=== PATIENT | female | born 1975 | race Caucasian/White ===

== ENCOUNTER 2021-02-02 11:49 | Inpatient (IN) ==
--- OUTSIDE RECORDS SUMMARY | 2021-02-02 11:52 | External Medical Summary | Continuity of Care Document ---
:1975 Author Name Tana Caicedo Address Unavailable Unavailable , Care Team Providers Name Role Phone Moi Magallanes [email or web address] [place] PILGRAM, A Unavailable Unavailable Unavailable Unavailable Unavailable Problems Encounter for routine gynecological examination (V72.31) (Z0 1.419) Female infertility (628.9) (N97.9) Depression (311) (F32.9) Endometriosis (617.9) (N80.9) Anxiety (300.00) (F41.9) Allergies and Adverse Reactions Amoxicillin CAPS (Allergy) Penicillins (Allergy) Medications buPROPion HCl ER (SR) 150 MG Oral Tablet Extended Release 12 Hour Refills: 0 Multi Vitamin/Minerals TABS Refills: 0 Nitin-Citrate CAPS Refills: 0 Procedures History of Laparoscopy (Diagnostic) Stat us: Completed History of Knee Arthroscopy (Therapeutic) Status: Completed History of Dilation And Curettage Status : Completed History of Oral Surgery Tooth Extraction Status: Completed Immunizations Immunizations not documented Family History Brother Family history of Hypertension (V17.49) Status: Active Grandmother Family history of Breast Cancer (V16.3) Status: Active Mother Family history of Hypertension (V17.49) Status: Active Family history of Cervical Cancer Status: Active Family history of Parkinson Disease Status: Active Sister Family history of Endometriosis Status: Active Social History - Smoking Status Smokes tobacco daily Plan of Treatment Planned Observations Planned Goals not documented Results No Known Results Results not documented Encounters Appointment; Marty Magallanes M.D. 22-Jun-2013 15:15 Encounter Diagnosis: Problem not documented
--- OUTSIDE RECORDS SUMMARY | 2021-02-02 11:52 | External Medical Summary | Continuity of Care Document ---
:1975 Author Name Tana Caicedo Address Unavailable Unavailable , Care Team Providers Name Role Phone Moi Magallanes M.D.@[email or web address] [place] PILGRAM, A Unavailable Unavailable Unavailable Unavailable Unavailable Problems Anxiety (300.00) (F41.9) Endometriosis (617.9) (N80.9) Depression (311) (F32.9) Female infertility (628.9) (N97.9) Encounter for routine gynecological examination (V72.31) (Z0 1.419) Allergies and Adverse Reactions Amoxicillin CAPS (Allergy) [...]
[2021-02-02] MEDS ORDERED: SODIUM CHLORIDE 0.9% 1000ML 1,000 ML IV ONE (12:23)
[2021-02-02] MEDS ORDERED: KETOROLAC TROMETHAMINE 15 MG/ML VIAL IV ONE (12:23)
[2021-02-02] MEDS ORDERED: dexAMETHasone**PF** 10 MG/ML VIAL IV ONE (12:40)
--- NOTE | 2021-02-02 12:43 | Emergency Department Note ---
Impression & Plan Pneumonia due to COVID-19 virus, Weakness, Hypoxia ED Provider Note Provider: Jasvir Blanchard MD DATE OF SERVICE: 02/02/2021 CHIEF COMPLAINT: Short of breath, weakness, Covid HISTORY OF PRESENT ILLNESS: Patient is a 45-year-old female denies significant past medical history presenting here approximately 10 days into course of illness and symptoms with coronavirus. Patient states she tested +8 days ago at urgent care and [facility]. Lives at home with her who is also ill. States she is been more short of breath and significantly weak and fatigued. States she had nausea and diarrhea in particular pain in the bilateral hips. Denies any syncope or falls. Reports fevers at times. Denies trauma or rash. States she gets very short of breath and weak if she tries to move around at home. Not been eating or drinking very much. Denies a history of asthma but states she is a former smoker. Denies recent travel. REVIEW OF SYSTEMS: A total of 10 review of systems was obtained and negative except as stated above in the HPI. PAST MEDICAL HISTORY: As noted above MEDICATIONS: Denies home medications SOCIAL HISTORY: Former smoker, lives at home with PHYSICAL EXAM: GENERAL: alert and oriented laying on the stretcher appears somewhat fatigued Head: normocephalic and atraumatic EYES: No injection, discharge or icterus. NECK: Trachea midline. LUNGS: Airway patent. No retractions. Breath sounds clear but mildly tachypneic HEART: Regular tachycardic rate and rhythm. No chest wall tenderness ABDOMEN: Soft and non-tender, without guarding or rebound. SKIN: Acyanotic, warm, dry, without rashes EXTREMITIES: Without swelling or deformity lower extremities with some mild bilateral hip tenderness on exam. NEUROLOGICAL: No focal deficits. No aphasia. No facial droop or slurred speech. EK bpm sinus tachycardia the PVC or PAC. No acute ST segment elevation or depression. QTC 474. CONTINUOUS CARDIAC MONITORING: was ordered and showed a heart rate of 90s-120s bpm in normal sinus rhythm and sinus tachycardia Patient's laboratory studies and imaging reviewed. Differential includes Infection, dehydration, metabolic abnormality, hypo/hyperglycemia, electrolyte disturbance, anemia, hypoxia, cardiac sources, intracerebral event, toxicologic, neurologic, as well as other pathologies. IMPRESSION/MEDICAL DECISION MAKING: Patient presents approximately 10 days into Covid hypoxic here initially on room air and tachycardic and tachypneic. Some GI symptoms and reports some concerning findings for dehydration. Reports bilateral hip pain but states her fevers have been improving some Tylenol home; believe this is likely myalgias related to her viral syndrome and illness. Last Tylenol she believes around 8 AM this morning. Given some fluid hydration here. Dose of dexamethasone ordered given her hypoxia. Chest x-ray and basic labs ordered as well as EKG. EKG without ischemic changes. D-dimer sent. Covid testing sent to confirm coronavirus infection. Patient somewhat improving on supplemental oxygen here nasal cannula. No si gnificant leukocytosis on laboratory studies. No anemia. No significant renal dysfunction or signs of electrolyte abnormality beyond some mild hypokalemia. Troponin is undetectable with this in the EKG I doubt acute cardiac injury or myocarditis. No transaminitis noted or signs of pancreatitis based on labs. No significant recent antibiotics and I doubt this represents an infectious C. difficile colitis. Likely nausea and vomiting and diarrheal symptoms secondary to the Covid. Negative . D-dimer is elevated 700 and as such a CT of the chest with complete exclude PE. Chest x-ray per my review and radiology interpretation with diffuse interstitial laboratory changes in the setting of the coronavirus diagnosis consistent with a viral pneumonitis/pneumonia. Patient again now requiring some degree of oxygen is significantly weak and fatigued. Given this discussed with her and she was in agreement the plan for further care and observation here in the hospital. The hospitalist team was alerted. CT of the chest per radiology with viral inflammatory changes but no evidence of PE. Small effusions noted. DIAGNOSIS: COVID-19 pneumonia, weakness, hypoxia DISPOSITION: Hospitalist will evaluate Patient was agreeable with this plan. Past Med/Surg History Social History Smoking Status: Former smoker Preferred Language: Upper Sorbian Feels Safe at Home: Yes Allergies Allergies Allergy/AdvReac Type Severity Reaction Status Date / Time PCN AMOXICILLIN Allergy Unknown Uncoded 01/25/05 12:35 Home Meds Home Medications Medication Instructions Recorded Confirmed Multivit/Min/Iron/Fol Ac/Pren 1 tab PO DAILY #0 09/04/07 ( Vitamin) Vitamin B Cmplx/Vitc/Folic Ac 1 cap PO BID #0 09/04/07 (Nephrocaps) Results & Data (ED) Vital Signs Vital Signs - 24 hr 02/02/21 11:54 02/02/21 12:19 02/02/21 12:36 Temperature 36.3 C L Temperature Source Temporal Artery Scan Pulse Rate 124 H 88 80 Pulse Rate [Left] Pulse Rate from SpO2 Sensor 102 H Respiratory Rate 26 H 30 H 20 Respiratory Effort / Characteristics Short of Breath Short of Breath SOB on Exertion Blood Pressure 131/70 133/88 Blood Pressure [Right Arm] Blood Pressure Mean 90 103 Blood Pressure Mean [Right Arm] Blood Pressure Position [Right Arm] Pulse Oximetry 88 L 95 95 Oxygen Delivery Method Room Air Nasal Cannula Oxygen Flow Rate 2 Sepsis Recent Fever Within 48 Hours Yes Sepsis New/Unexplained Change in Mental Status No Sepsis Action Taken by Nursing Physician Notified 02/02/21 12:40 02/02/21 12:50 02/02/21 13:00 Temperature Temperature Source Pulse Rate 82 85 56 L Pulse Rate [Left] Pulse Rate from SpO2 Sensor 101 H 106 H 99 H Respiratory Rate 32 H 35 H 27 H Respiratory Effort / Characteristics Blood Pressure Blood Pressure [Right Arm] Blood Pressure Mean Blood Pressure Mean [Right Arm] Blood Pressure Position [Right Arm] Pulse Oximetry 95 95 95 Oxygen Delivery Method Oxygen Flow Rate Sepsis Recent Fever Within 48 Hours Sepsis New/Unexplained Change in Mental Status Sepsis Action Taken by Nursing 02/02/21 13:03 02/02/21 13:10 Temperature Temperature Source Pulse Rate Pulse Rate [Left] 71 Pulse Rate from SpO2 Sensor 96 H Respiratory Rate 30 H 30 H Respiratory Effort / Characteristics Short of Breath SOB on Exertion Blood Pressure Blood Pressure [Right Arm] 133/88 Blood Pressure Mean Blood Pressure Mean [Right Arm] 103 Blood Pressure Position [Right Arm] Lying Pulse Oximetry 95 96 Oxygen Delivery Method Nasal Cannula Oxygen Flow Rate 2 Sepsis Recent Fever Within 48 Hours Sepsis New/Unexplained Change in Mental Status Sepsis Action Taken by Nursing Laboratory Data Result diagrams: 02/02/21 12:40 02/02/21 12:40 Lab Results 02/02/21 02/02/21 02/02/21 Range/Units 12:40 12:40 12:40 WBC 6.55 (4.8-10.8) K/uL RBC 4.53 (4.2-5.4) M/uL Hgb 13.3 (12.0-16.0) g/dL Hct 39.1 (37-47) % MCV 86.3 (80-100) fL MCH 29.4 (25-34) pg MCHC 34.0 (32-36) g/dL RDW Std Deviation 41.8 (36.4-46.3) fL RDW Coeff of Becka 12.9 (11.5-14.5) % Plt Count 323 (130-400) K/uL MPV 9.7 (7.4-10.4) fL Immature Gran % (Auto) 0.3 % Neut % (Auto) 81.8 % Lymph % (Auto) 10.8 % [place] % (Auto) 6.7 % Eos % (Auto) 0.2 % Baso % (Auto) 0.2 % Neut # (Auto) 5.36 (1.4-6.5) K/uL Lymph # (Auto) 0.71 L (1.2-3.4) K/uL [place] # (Auto) 0.44 (0.11-0.59) K/uL Eos # (Auto) 0.01 (0-0.5) K/uL Baso # (Auto) 0.01 (0-0.2) K/uL Immature Gran # (Auto) 0.02 (0.00-0.02) K/uL PT 11.2 (9.0-12.0) Seconds INR 1.1 (0.9-1.1) APTT 26.7 (21.0-31.0) Seconds PTT Ratio 1.0 D-Dimer 700 H* (0-500) ug/L FEU Sodium 140 (136-145) mmol/L Potassium 3.4 L (3.5-5.1) mmol/L Chloride 107 (98-107) mmol/L Carbon Dioxide 27 (21-32) mmol/L Anion Gap 6.0 (3-11) BUN 17 (7-18) mg/dl Creatinine 0.68 (0.6-1.2) mg/dl Est Cr Clr Drug Dosing 105.8 ml/min Est GFR ( Amer) 122.4 Est GFR (Non-Af Amer) 105.6 BUN/Creatinine Ratio 24.3 H (10-20) Glucose 97 (70-99) mg/dl Calcium 8.5 (8.5-10.1) mg/dl Magnesium 2.4 (1.8-2.4) mg/dl Total Bilirubin 0.4 (0.2-1) mg/dl AST 32 (15-37) U/L ALT 34 (12-78) U/L Alkaline Phosphatase 50 (45-117) U/L Troponin I < 0.015 (0-0.045) ng/ml Total Protein 8.1 (6.4-8.2) gm/dl Albumin 2.9 L (3.4-5.0) gm/dl Globulin 5.2 H (2.5-4.0) gm/dl Albumin/Globulin Ratio 0.6 L (0.9-2) Lipase 283 (73-393) U/L HCG, Qual (Negative) COVID-19 Eval Order SARS-CoV-2 (PCR) (Negative) Influenza Type A (PCR) (Neg) Influenza Type B (PCR) (Neg) RSV (RT-PCR) (Neg) 02/02/21 02/02/21 02/02/21 Range/Units 12:40 12:55 12:55 WBC (4.8-10.8) K/uL RBC (4.2-5.4) M/uL Hgb (12.0-16.0) g/dL Hct (37-47) % MCV (80-100) fL MCH (25-34) pg MCHC (32-36) g/dL RDW Std Deviation (36.4-46.3) fL RDW Coeff of Becka (11.5-14.5) % Plt Count (130-400) K/uL MPV (7.4-10.4) fL Immature Gran % (Auto) % Neut % (Auto) % Lymph % (Auto) % [place] % (Auto) % Eos % (Auto) % Baso % (Auto) % Neut # (Auto) (1.4-6.5) K/uL Lymph # (Auto) (1.2-3.4) K/uL [place] # (Auto) (0.11-0.59) K/uL Eos # (Auto) (0-0.5) K/uL Baso # (Auto) (0-0.2) K/uL Immature Gran # (Auto) (0.00-0.02) K/uL PT (9.0-12.0) Seconds INR (0.9-1.1) APTT (21.0-31.0) Seconds PTT Ratio D-Dimer (0-500) ug/L FEU Sodium (136-145) mmol/L Potassium (3.5-5.1) mmol/L Chloride (98-107) mmol/L Carbon Dioxide (21-32) mmol/L Anion Gap (3-11) BUN (7-18) mg/dl Creatinine (0.6-1.2) mg/dl Est Cr Clr Drug Dosing ml/min Est GFR ( Amer) Est GFR (Non-Af Amer) BUN/Creatinine Ratio (10-20) Glucose (70-99) mg/dl Calcium (8.5-10.1) mg/dl Magnesium (1.8-2.4) mg/dl Total Bilirubin (0.2-1) mg/dl AST (15-37) U/L ALT (12-78) U/L Alkaline Phosphatase (45-117) U/L Troponin I (0-0.045) ng/ml Total Protein (6.4-8.2) gm/dl Albumin (3.4-5.0) gm/dl Globulin (2.5-4.0) gm/dl Albumin/Globulin Ratio (0.9-2) Lipase (73-393) U/L HCG, Qual Negative (Negative) COVID-19 Eval Order CovFluRsv at [facility] SARS-CoV-2 (PCR) POSITIVE A* (Negative) Influenza Type A (PCR) Negative (Neg) Influenza Type B (PCR) Negative (Neg) RSV (RT-PCR) Negative (Neg) Administered Medications Discontinued Medications Dexamethasone Sodium Phosphate (DexamethasonePf 10 Mg/Ml Vial) 6 mg IV NOW ONE Stop: 02/02/21 12:41 Last Admin: 02/02/21 12:52 Dose: 6 mg Documented by: [id number] Sodium Chloride (Nss 1000ml) 1,000 mls @ 999 mls/hr IV .Q1H1M ONE Stop: 02/02/21 13:23 Last Infusion: 02/02/21 13:59 Dose: 0 mls/hr Documented by: [id number] Admin: 02/02/21 12:52 Dose: 999 mls/hr Documented by: [id number] Ioversol (Optiray 320 125ml) 120 ml IV ONCE ONE Stop: 02/02/21 13:52 Last Admin: 02/02/21 13:51 Dose: 120 ml Documented by: [id number] Ketorolac Tromethamine (Ketorolac Tromethamine 15 Mg/Ml Vial) 10 mg IV NOW ONE Stop: 02/02/21 12:24 Last Admin: 02/02/21 12:52 Dose: 10 mg Documented by: [id number] Imaging Data Radiologist's Impression: Chest X-Ray 02/02/21 12:22 XR chest 1V portable CLINICAL HISTORY: Dyspnea, COVID COMPARISON STUDY: No previous studies for comparison. FINDINGS: The heart is normal in size. There are multifocal airspace opacities consistent with a multifocal pneumonia.[There are no large pleural effusions. There is no pneumothorax. IMPRESSION: Multifocal pulmonary airspace opacities consistent with a multifocal pneumonia ACT 112: Negative or not required by law. Electronically signed by: Reginald Hernández M.D. 02/02/2021 1:47 PM Chest CTA 02/02/21 13:35 CT ANGIOGRAM OF THE CHEST CLINICAL HISTORY: Dyspnea. Covid pneumonia. COMPARISON STUDY: Chest x-ray dated 02/02/2021 TECHNIQUE: Following the IV administration of 120 cc of Optiray 320, CT angiogram of the chest was performed from the upper abdomen to the thoracic inlet utilizing the pulmonary embolus protocol. Images are reviewed in the axial, sagittal, and coronal planes. 3-D MIPS images are created and assessed. IV contrast was administered without complication. A dose lowering technique wa s utilized adhering to the principles of ALARA. CT DOSE: 853.97 mGy.cm FINDINGS: Thyroid: Imaged portions of the thyroid gland are normal in size and attenuation. Thoracic aorta: The thoracic aorta is normal in caliber and demonstrates 4- vessel very arch anatomy. No dissection is seen. Pulmonary vasculature: The pulmonary trunk is normal in caliber. There are no filling defects identified in main, lobar, or segmental pulmonary branches to suggest pulmonary embolus. Heart: The heart is normal in size and without pericardial effusion. Lungs and pleural spaces: Evaluation of the lung parenchyma is degraded by bib on artifact. Multifocal airspace consolidation is seen throughout both lungs with a lower lobe and subpleural predominance. There are small pleural effusions. The trachea and central airways are clear. Mediastinum: Mildly enlarged mediastinal lymph nodes measure up to 10 mm in short axis. Aline: Mildly enlarged hilar nodes measure up to 13 mm in short axis. Axillae: There is no axillary lymphadenopathy. Upper abdomen: There is a calcified gallstone. Partially visualized upper abdominal viscera is otherwise grossly unremarkable. Skeletal structures: No lytic or blastic bony lesions are seen. IMPRESSION: 1. There is no evidence of pulmonary embolus in the main, lobar, or segmental pulmonary arteries. 2. Multifocal airspace consolidation is consistent with the reported history of a viral pneumonia. Radiographic follow-up to resolution is recommended. 3. Small pleural effusions. 4. Mildly enlarged mediastinal and hilar nodes are likely reactive. 5. Cholelithiasis. ACT 112: Negative or not required by law. Electronically signed by: Boris Han M.D. 02/02/2021 2:18 PM Discharge Plan Visit Data Chief Complaint: Shortness of Breath/Dyspnea Stated Complaint: SOB, CHEST PAIN, COVID + ON 01-26-21 ED Provider: Jasvir Blanchard Discharge Problem: Pneumonia due to COVID-19 virus, Weakness, Hypoxia Forms Stand Alone Forms: My [facility] [place] [employer] Prescriptions Prescriptions: No Action Multivit/Min/Iron/Fol Ac/Pren ( Vitamin) tablet 1 tab PO DAILY Qty: 0 RF: 0 Vitamin B Cmplx/Vitc/Folic Ac (Nephrocaps) 1 CAP capsule 1 cap PO BID Qty: 0 RF: 0
[2021-02-02 13:09] LABS: Basophils # (auto) 0.01 K/uL (0-0.2); Basophils % (auto) 0.2 %; Eosinophils # (auto) 0.01 K/uL (0-0.5); Eosinophils % (auto) 0.2 %; Hematocrit (blood only) 39.1 % (37-47); Hemoglobin 13.3 g/dL (12.0-16.0); Immature Granulocytes # (auto) 0.02 K/uL (0.00-0.02); Immature Granulocytes % (auto) 0.3 %; Lymphocytes # (auto) 0.71 K/uL (1.2-3.4); Lymphocytes % (auto) 10.8 %; Mean Corpuscular Hemoglobin 29.4 pg (25-34); Mean Corpuscular Volume 86.3 fL (80-100); Mean Platelet Volume 9.7 fL (7.4-10.4); Monocytes # (auto) 0.44 K/uL (0.11-0.59); Monocytes % (auto) 6.7 %; Neutrophils # (auto) 5.36 K/uL (1.4-6.5); Neutrophils % (auto) 81.8 %; Platelet Count 323 K/uL (130-400); RDW Coefficient of Variation 12.9 % (11.5-14.5); RDW Standard Deviation 41.8 fL (36.4-46.3); Red Blood Count 4.53 M/uL (4.2-5.4); White Blood Count 6.55 K/uL (4.8-10.8)
[2021-02-02 13:21] LABS: INR 1.1 (0.9-1.1); Partial Thromboplastin Time 26.7 Seconds (21.0-31.0); Prothrombin Time 11.2 Seconds (9.0-12.0)
[2021-02-02 13:24] LABS: D Dimer 700 ug/L FEU (0-500)
[2021-02-02 13:27] LABS: Alanine Aminotransferase 34 U/L (12-78); Albumin Level 2.9 gm/dl (3.4-5.0); Aspartate Aminotransferase 32 U/L (15-37); BUN Creatinine Ratio 24.3 (10-20); Blood Urea Nitrogen 17 mg/dl (7-18); Calcium 8.5 mg/dl (8.5-10.1); Carbon Dioxide 27 mmol/L (21-32); Chloride 107 mmol/L (98-107); Creatinine Clr Calc Pharmacy 105.8 ml/min; Est GFR (African American) 122.4; Est GFR (Non-African American) 105.6; Glucose 97 mg/dl (70-99); Lipase 283 U/L (73-393); Magnesium 2.4 mg/dl (1.8-2.4); Potassium 3.4 mmol/L (3.5-5.1); Sodium 140 mmol/L (136-145)
[2021-02-02 13:28] LABS: Pregnancy Test, Serum Negative (Negative)
[2021-02-02 13:32] LABS: Albumin Globulin Ratio 0.6 (0.9-2); Alkaline Phosphatase 50 U/L (45-117); Bilirubin,Total 0.4 mg/dl (0.2-1); Globulin 5.2 gm/dl (2.5-4.0); Total Protein 8.1 gm/dl (6.4-8.2); Troponin I < 0.015 ng/ml (0-0.045)
--- NOTE | 2021-02-02 13:48 | XRay Report ---
XR chest 1V portable CLINICAL HISTORY: Dyspnea, COVID COMPARISON STUDY: No previous studies for comparison. FINDINGS: The heart is normal in size. There are multifocal airspace opacities consistent with a mult ifocal pneumonia.[There are no large pleural effusions. There is no pneumothorax. IMPRESSION: Multifocal pulmonary airspace opacities consistent with a multifocal pneumonia ACT 112: Negative or not required by law. Electronically signed by: Reginald Hernández M.D. 02/02/2021 1:47 PM
[2021-02-02 13:51] LABS: Influenza A virus by PCR Negative (Neg); Influenza B virus by PCR Negative (Neg); RSV by PCR Negative (Neg)
[2021-02-02] MEDS ORDERED: OPTIRAY 320 125ml IV ONE (13:51)
[2021-02-02 13:57] LABS: SARS CoV2 RNA(COVID-19) InHosp POSITIVE (Negative)
--- NOTE | 2021-02-02 14:19 | CT Scan Report ---
CT ANGIOGRAM OF THE CHEST CLINICAL HISTORY: Dyspnea. Covid pneumonia. COMPARISON STUDY: Chest x-ray dated 02/02/2021 TECHNIQUE: Following the IV administration of 120 cc of Optiray 320, CT angiogram of the chest was pe rformed from the upper abdomen to the thoracic inlet utilizing the pulmonary embolus protocol. Images are reviewed in the axial, sagittal, and coronal planes. 3-D MIPS images are created and assessed. I V contrast was administered without complication. A dose lowering technique was utilized adhering to the principles of ALARA. CT DOSE: 853.97 mGy.cm FINDINGS: Thyroid: Imaged portions of the thyroid gland are normal in size and attenuation. Thoracic aorta: The thoracic aorta is normal in caliber and demonstrates 4-vessel very arch anatomy. No dissection is seen. Pulmonary vasculature: The pulmonary trunk is normal in caliber. There are no filling defects identif ied in main, lobar, or segmental pulmonary branches to suggest pulmonary embolus. Heart: The heart is normal in size and without pericardial effusion. Lungs and pleural spaces: Evaluation of the lung parenchyma is degraded by motion artifact. Multifoca l airspace consolidation is seen throughout both lungs with a lower lobe and subpleural predominance. There are small pleural effusions. The trachea and central airways are clear. Mediastinum: Mildly enlarged mediastinal lymph nodes measure up to 10 mm in short axis. Aline: Mildly enlarged hilar nodes measure up to 13 mm in short axis. Axillae: There is no axillary lymphadenopathy. Upper abdomen: There is a calcified gallstone. Partially visualized upper abdominal viscera is otherw ise grossly unremarkable. Skeletal structures: No lytic or blastic bony lesions are seen. IMPRESSION: 1. There is no evidence of pulmonary embolus in the main, lobar, or segmental pulmonary arteries. 2. Multifocal airspace consolidation is consistent with the reported history of a viral pneumonia. Ra diographic follow-up to resolution is recommended. 3. Small pleural effusions. 4. Mildly enlarged mediastinal and hilar nodes are likely reactive. 5. Cholelithiasis. ACT 112: Negative or not required by law. Electronically signed by: Boris Han M.D. 02/02/2021 2:18 PM
[2021-02-02] MEDS ORDERED: ACETAMINOPHEN 500 MG TAB PO STA (14:22)
--- NOTE | 2021-02-02 14:44 | Electrocardiogram Report ---
Test Reason : Blood Pressure : / mmHG Vent. Rate : 101 BPM Atrial Rate : 101 BPM P-R Int : 130 ms QRS Dur : 088 ms QT Int : 366 ms P-R-T Axes : 036 002 011 degrees QTc Int : 474 ms Sinus tachycardia Minimal voltage criteria for LVH, may be normal variant Borderline ECG No previous ECGs available Confirmed by Pastor Juarez ([id number]) on 02/02/2021 2:44:32 PM Referred By: REFERRED SELF Confirmed By:Pastor Juarez
[2021-02-02 15:13] LABS: C Reactive Protein 10.6 mg/dl (0-0.29); Ferritin 225.4 ng/ml (8-388)
--- NOTE | 2021-02-02 16:02 | History & Physical Report ---
Date of Service February 02, 2021 Assessment & Plan (1) Pneumonia due to COVID-19 virus: (2) Acute respiratory failure with hypoxia: -Admit to telemetry -Patient presenting from home with reports of worsening shortness of breath, tested positive for COVID-19 on 01/22 -In the ED, saturating 88% on room air, currently requiring 2 L via nasal cannula to maintain saturations -CTA chest negative for pulmonary embolism however shows multifocal consolidation -IV remdesivir and dexamethasone -Given duration of illness, no indication for convalescent plasma -Negative procalcitonin, hold antibiotics for now (3) DVT prophylaxis: -SQ Lovenox Admission and Anticipated Discharge Date Admission Date: February 02, 2021 History of Present Illness Chief Complaint: Shortness of breath, + COVID-19 on 01/22 Primary Care Provider: Doc Taylor MD 45-year-old female with H depression and other problems listed below who presents to the ED for evaluation of ongoing shortness of breath and positive COVID-19 test on 01/22. Patient reports she has been sick for the past 10 days. Reports symptoms have been progressively getting worse. She reports shortness of breath with minimal exertion and conversation. She has had a nonproductive cough. Has been having ongoing low-grade fevers. Reports a very poor appetite. Reports sense of taste and smell remains intact however food does not taste normal. Denies abdominal pain, nausea, vomiting, diarrhea. No chest pain or palpitations. Denies lightheadedness and dizziness. No urinary symptoms. In the ED, patient was found to be hypoxic on room air at 88%. Currently requiring 2 L of oxygen via NC to maintain saturation. CTA chest is negative for pulmonary embolism however shows multifocal airspace consolidation. Patient was given Tylenol, IV dexamethasone, IV ketorolac, IVF. Allergies Allergy/AdvReac Type Severity Reaction Status Date / Time amoxicillin Allergy Unconscious Unverified 02/02/21 14:35 Penicillins Allergy Unknown Unverified 02/02/21 14:35 Home Medications Medication Instructions Recorded Confirmed Type bupropion HCl 450 mg PO DAILY 02/02/21 02/02/21 History Past Med/Surg History Medical History (Updated 02/02/21 @ 16:07 by SHIMON Monzon) Depression Surgical History (Updated 02/02/21 @ 16:04 by SHIMON Monzon) No history of previous surgery Family History Mother Cervical cancer Social History (Updated 02/02/21 @ 16:05 by SHIMON Monzon) Smoking Status: Former smoker Hx Alcohol Use: Yes Alcohol Intake Frequency: 2-4 x/Month Preferred Language: Grenadian Feels Safe at Home: Yes Review of Systems Review of Systems: ROS per HPI, all other systems reviewed and negative Physical Exam Constitutional: WD/WN, vitals as above + ill appearing; no acute distress Eyes: PERRL, conjunctivae normal, anicteric sclerae ENMT: external ear and nose normal, oropharynx normal Respiratory: normal respiratory effort; no respiratory distress Auscultation: + diminished lung sounds Shortness of breath with minimal exertion Cardiovascular: Rate/Rhythm: regular rate and regular rhythm Vessels: normal peripheral pulses Extremities: no edema Gastrointestinal (Abdomen): normal bowel sounds, soft, nontender, no hepatosplenomegaly Musculoskeletal: no cyanosis or clubbing, extremities motor strength 5/5 Skin: no rashes, warm and dry Neurologic: PERRL, EOMI, accommodation nl, no face palsy, no dysarthria Psychiatric: A+Ox3, euthymic affect Results & Data Results & Data ([facility]) Vital Signs (Past 12 Hours) Vital Signs Temp Pulse Pulse Resp BP BP Pulse Ox 02/02/21 14:31 75 21 94 02/02/21 14:30 62 23 114/78 94 02/02/21 14:27 37.2 C 62 30 H 122/90 95 02/02/21 14:20 77 25 H 94 02/02/21 14:11 62 23 94 02/02/21 14:10 64 30 H 122/90 94 02/02/21 14:04 93 02/02/21 13:40 81 32 H 94 02/02/21 13:30 69 28 H 119/81 95 02/02/21 13:20 68 29 H 96 02/02/21 13:17 73 20 130/82 95 02/02/21 13:10 30 H 96 02/02/21 13:03 71 30 H 133/88 95 02/02/21 13:00 56 L 27 H 95 02/02/21 12:50 85 35 H 95 02/02/21 12:40 82 32 H 95 02/02/21 12:36 80 20 95 02/02/21 12:19 88 30 H 133/88 95 02/02/21 11:54 36.3 C L 124 H 26 H 131/70 88 L Laboratory Results Short CBC 02/02/21 Range/Units 12:40 WBC 6.55 (4.8-10.8) K/uL Hgb 13.3 (12.0-16.0) g/dL Hct 39.1 (37-47) % Plt Count 323 (130-400) K/uL BMP 02/02/21 12:40 Sodium 140 Potassium 3.4 L Chloride 107 Carbon Dioxide 27 BUN 17 Creatinine 0.68 Glucose 97 Calcium 8.5 Cardiac Enzymes 02/02/21 Range/Units 12:40 Troponin I < 0.015 (0-0.045) ng/ml Liver Function 02/02/21 Range/Units 12:40 Total Bilirubin 0.4 (0.2-1) mg/dl AST 32 (15-37) U/L ALT 34 (12-78) U/L Alkaline Phosphatase 50 (45-117) U/L Albumin 2.9 L (3.4-5.0) gm/dl Diagnostic Findings Chest X-Ray 02/02/21 12:22 XR chest 1V portable CLINICAL HISTORY: Dyspnea, COVID COMPARISON STUDY: No previous studies for comparison. FINDINGS: The heart is normal in size. There are multifocal airspace opacities consistent with a multifocal pneumonia.[There are no large pleural effusions. There is no pneumothorax. IMPRESSION: Multifocal pulmonary airspace opacities consistent with a multifocal pneumonia ACT 112: Negative or not required by law. Electronically signed by: Reginald Hernández M.D. 02/02/2021 1:47 PM Chest CTA 02/02/21 13:35 CT ANGIOGRAM OF THE CHEST CLINICAL HISTORY: Dyspnea. Covid pneumonia. COMPARISON STUDY: Chest x-ray dated 02/02/2021 TECHNIQUE: Following the IV administration of 120 cc of Optiray 320, CT angiogram of the chest was performed from the upper abdomen to the thoracic inlet utilizing the pulmonary embolus protocol. Images are reviewed in the axial, sagittal, and coronal planes. 3-D MIPS images are created and assessed. IV contrast was administered without complication. A dose lowering technique was utilized adhering to the principles of ALARA. CT DOSE: 853.97 mGy.cm FINDINGS: Thyroid: Imaged portions of the thyroid gland are normal in size and attenuation. Thoracic aorta: The thoracic aorta is normal in caliber and demonstrates 4- vessel very arch anatomy. No dissection is seen. Pulmonary vasculature: The pulmonary trunk is normal in caliber. There are no filling defects identified in main, lobar, or segmental pulmonary branches to suggest pulmonary embolus. Heart: The heart is normal in size and without pericardial effusion. Lungs and pleural spaces: Evaluation of the lung parenchyma is degraded by motion artifact. Multifocal airspace consolidation is seen throughout both lungs with a lower lobe and subpleural predominance. There are small pleural effusions. The trachea and central airways are clear. Mediastinum: Mildly enlarged mediastinal lymph nodes measure up to 10 mm in short axis. Aline: Mildly enlarged hilar nodes measure up to 13 mm in short axis. Axillae: There is no axillary lymphadenopathy. Upper abdomen: There is a calcified gallstone. Partially visualized upper abdominal viscera is otherwise grossly unremarkable. Skeletal structures: No lytic or blastic bony lesions are seen. IMPRESSION: 1. There is no evidence of pulmonary embolus in the main, lobar, or segmental pulmonary arteries. 2. Multifocal airspace consolidation is consistent with the reported history of a viral pneumonia. Radiographic follow-up to resolution is recommended. 3. Small pleural effusions. 4. Mildly enlarged mediastinal and hilar nodes are likely reactive. 5. Cholelithiasis. ACT 112: Negative or not required by law. Electronically signed by: Boris Han M.D. 02/02/2021 2:18 PM Code Status & VTE Plan VTE Prophylaxis Plan VTE Prophylaxis will be ordered: Yes Supervising Physician Co-Signing Physician Notes Attending addendum: The patient was seen and examined telemetry/Covid unit She has been complaining of cough with no shortness of breath for the last 10 days following diagnosis of COVID-19 Cough and shortness of breath has been worse for the last 3 days with fever and sweating She was noted to be desaturating at home CT of the chest in the ER showed multiple pneumonia suggestive of COVID-19 infection On examination Moderate shortness of breath at rest Hemodynamically stable Chest-decreased breath sounds both sides with minimal crackles ,no wheezing Heart-S1-S2, regular Abdomen-benign Extremities-no edema Admission labs imaging studies reviewed And increased CRP, D-dimer positive CT of the chest for COVID-19 We will continue remdesivir and Dexamethasone Agree with assessment and plan as outlined above by Elidia Salguero
[2021-02-02] MEDS ORDERED: ACETAMINOPHEN 325 MG TAB PO PRN (16:55)
[2021-02-02] MEDS ORDERED: POTASSIUM CHLORIDE CRTAB 20 MEQ TABCR PO ONE (17:30)
[2021-02-02] MEDS ORDERED: REMDESIVIR 200 MG in SODIUM CHLORIDE 0.9% 210 ML IV ONE (18:00)
[2021-02-02] MEDS: SODIUM CHLORIDE 0.9% 10ML FLUSH IV SCH (20:52)
[2021-02-02] MEDS: ENOXAPARIN INJ 40 MG/0.4 ML SYR SQ SCH (20:52)
[2021-02-03 06:14] LABS: Hematocrit (blood only) 37.5 % (37-47); Hemoglobin 12.5 g/dL (12.0-16.0); Mean Corpuscular Hemoglobin 29.1 pg (25-34); Mean Corpuscular Hgb Conc 33.3 g/dL (32-36); Mean Corpuscular Volume 87.4 fL (80-100); Mean Platelet Volume 9.3 fL (7.4-10.4); Platelet Count 317 K/uL (130-400); RDW Coefficient of Variation 12.8 % (11.5-14.5); RDW Standard Deviation 41.3 fL (36.4-46.3); Red Blood Count 4.29 M/uL (4.2-5.4); White Blood Count 4.36 K/uL (4.8-10.8)
[2021-02-03 07:05] LABS: BUN Creatinine Ratio 29.7 (10-20); Calcium 8.5 mg/dl (8.5-10.1); Creatinine Clr Calc Pharmacy 127.6 ml/min; Est GFR (African American) 129.8; Potassium 4.1 mmol/L (3.5-5.1)
[2021-02-03] MEDS: buPROPion XL 150 MG TABCR PO SCH (09:05)
[2021-02-03] MEDS: dexAMETHasone 6 MG in SYRINGE 0 ML IV SCH (09:05)
[2021-02-03] MEDS ORDERED: FUROSEMIDE 40 MG in SYRINGE 0 ML IV ONE (12:30)
[2021-02-03] MEDS: guaiFENesin/DEXTROM SYRUP 200MG/20MG 10ML UDC PO PRN ×2 (14:21→22:45)
--- NOTE | 2021-02-03 16:15 | Hospitalist Progress Note ---
Date of Service February 03, 2021 Assessment & Plan (1) Pneumonia due to COVID-19 virus: (2) Acute respiratory failure with hypoxia: -Admit to telemetry -Patient presenting from home with reports of worsening shortness of breath, tested positive for COVID-19 on 01/22 -In the ED, saturating 88% on room air, currently requiring 2 L via nasal cannula to maintain saturations -CTA chest negative for pulmonary embolism however shows multifocal consolidation -IV remdesivir and dexamethasone -Given duration of illness, no indication for convalescent plasma -Negative procalcitonin, hold antibiotics for now -She has been tolerating prone position as long as she can -Clinically not any better and if the symptoms deteriorate will need to involve pulmonary -We will start [id number] cough medicine and give a small dose of Lasix IV to improve saturation -She is agreeable to have pulmonary evaluation if the condition deteriorates (3) DVT prophylaxis: -SQ Lovenox Admission and Anticipated Discharge Date Admission Date: February 02, 2021 Subjective 02/03/2021 The patient was seen and examined in telemetry/Covid unit She was noted to require up to 5 L of oxygen to maintain saturation She complains of cough but no increasing shortness of breath Denies any fever and/or chills Review of Systems Review of Systems: All systems reviewed and are unremarkable except as noted below Respiratory: + cough, + chest congestion and + dyspnea Physical Exam Physical Exam: Lying in bed with minimal shortness of breath at rest Constitutional: well developed, well nourished and average body habitus; not ill appearing Eyes: PERRL, conjunctivae normal, anicteric sclerae ENMT: external ear and nose normal, oropharynx normal Neck: trachea midline, no thyromegaly Respiratory: + respiratory distress (Mild to moderate at rest) Auscultation: + diminished lung sounds and + crackles (Minimal crackles at the bases) Gastrointestinal (Abdomen): Inspection/Auscultation: normal bowel sounds; abdomen not distended Percussion/Palpation: abdomen soft; abdomen nontender Musculoskeletal: No acute arthritis in any joint Neurologic: Alert, awake and oriented x3 Psychiatric: A+Ox3, euthymic affect Lymphatic: no cervical or axillary lymphadenopathy Results & Data Results & Data ([facility]) Vital Signs (Past 12 Hours) Vital Signs Temp Pulse Pulse Resp BP BP Pulse Ox 02/03/21 15:56 36.7 C 90 18 136/73 93 02/03/21 11:23 36.5 C 84 18 149/85 H 90 02/03/21 08:00 80 02/03/21 07:27 36.9 C 82 18 125/88 91 Laboratory Results Short CBC 02/03/21 Range/Units 05:55 WBC 4.36 L (4.8-10.8) K/uL Hgb 12.5 (12.0-16.0) g/dL Hct 37.5 (37-47) % Plt Count 317 (130-400) K/uL BMP 02/03/21 05:55 Sodium 141 Potassium 4.1 D Chloride 112 H Carbon Dioxide 25 BUN 17 Creatinine 0.57 L Glucose 95 Calcium 8.5 Medications Administered Current Inpatient Medications Acetaminophen (Acetaminophen 325 Mg Tab) 650 mg PO Q4H PRN PRN Reason: Pain or Fever Stop: 03/04/21 16:54 Bupropion HCl (Bupropion Xl 150 Mg Tabcr) 450 mg PO DAILY [facility] Stop: 03/05/21 08:59 Last Admin: 02/03/21 09:05 Dose: 450 mg Documented by: Enoxaparin Sodium (Enoxaparin Inj 40 Mg/0.4 Ml Syr) 40 mg SQ Q24H YESIKA Stop: 03/04/21 20:59 Last Admin: 02/02/21 20:52 Dose: 40 mg Documented by: Guaifenesin (Guaifenesin 600 Mg Tabcr) 600 mg PO Q12 YESIKA Stop: 03/05/21 20:59 Guaifenesin/Dextromethorphan (Guaifenesin/Dextrom Syrup 200mg/20mg 10ml Udc) 10 ml PO Q6H PRN PRN Reason: Cough Stop: 03/05/21 12:01 Last Admin: 02/03/21 14:21 Dose: 10 ml Documented by: Remdesivir 100 mg/ Sodium (Chloride) 250 mls @ 250 mls/hr IV Q24H YESIKA; Protocol Stop: 02/06/21 20:59 Dexamethasone 6 mg/ Syringe 1.5 mls @ 1 mls/min IV DAILY YESIKA Stop: 02/13/21 08:59 Last Admin: 02/03/21 09:05 Dose: 1 mls/min Documented by: Sodium Chloride (Sodium Chloride 0.9% 10ml Flush) 30 ml IV DAILY@2100 [facility] Stop: 02/06/21 21:01 Last Admin: 02/02/21 20:52 Dose: 30 ml Documented by:
[2021-02-03 17:28] LABS: Appearance Urine Clear (Clear); Bilirubin Urine Negative (Negative); Blood Urine Negative (Negative); Color Urine Yellow; Glucose Urine UA Negative (Negative); Ketones Urine Negative (Negative); Leukocyte Esterase Urine Negative (Negative); Nitrite Urine Negative (Negative); Protein Urine Negative (Negative); Urobilinogen Urine Negative (Negative); pH Urine 6.5 (4.5-7.5)
[2021-02-03] MEDS: REMDESIVIR 100 MG in SODIUM CHLORIDE 0.9% 230 ML IV SCH (20:12)
[2021-02-03] MEDS: ENOXAPARIN INJ 40 MG/0.4 ML SYR SQ SCH (20:12)
[2021-02-03] MEDS: guaiFENesin 600 MG TABCR PO SCH (20:35)
[2021-02-03] MEDS ORDERED: guaiFENesin 600 MG TABCR PO SCH (21:00)
[2021-02-03] MEDS: SODIUM CHLORIDE 0.9% 10ML FLUSH IV SCH (21:35)
[2021-02-04 07:35] LABS: Basophils # (auto) 0.02 K/uL (0-0.2); Basophils % (auto) 0.2 %; Hematocrit (blood only) 39.3 % (37-47); Hemoglobin 12.9 g/dL (12.0-16.0); Immature Granulocytes # (auto) 0.03 K/uL (0.00-0.02); Immature Granulocytes % (auto) 0.3 %; Lymphocytes # (auto) 1.27 K/uL (1.2-3.4); Lymphocytes % (auto) 13.1 %; Mean Corpuscular Hemoglobin 28.6 pg (25-34); Mean Corpuscular Hgb Conc 32.8 g/dL (32-36); Mean Corpuscular Volume 87.1 fL (80-100); Mean Platelet Volume 9.5 fL (7.4-10.4); Monocytes # (auto) 0.91 K/uL (0.11-0.59); Monocytes % (auto) 9.4 %; Neutrophils # (auto) 7.46 K/uL (1.4-6.5); Platelet Count 418 K/uL (130-400); RDW Coefficient of Variation 12.7 % (11.5-14.5); Red Blood Count 4.51 M/uL (4.2-5.4); White Blood Count 9.69 K/uL (4.8-10.8)
[2021-02-04 08:01] LABS: Albumin Level 2.8 gm/dl (3.4-5.0); BUN Creatinine Ratio 28.7 (10-20); Bilirubin,Total 0.4 mg/dl (0.2-1); Creatinine Clr Calc Pharmacy 116.1 ml/min; Est GFR (African American) 125.6; Est GFR (Non-African American) 108.3; Magnesium 2.1 mg/dl (1.8-2.4); Phosphorus 4.1 mg/dl (2.5-4.9); Potassium 3.5 mmol/L (3.5-5.1)
[2021-02-04 08:02] LABS: Albumin Globulin Ratio 0.6 (0.9-2); Globulin 4.6 gm/dl (2.5-4.0); Total Protein 7.4 gm/dl (6.4-8.2)
[2021-02-04] MEDS ORDERED: POTASSIUM CHLORIDE CRTAB 20 MEQ TABCR PO ONE (08:38)
[2021-02-04] MEDS: dexAMETHasone 6 MG in SYRINGE 0 ML IV SCH (08:40)
[2021-02-04] MEDS ORDERED: ALBUTEROL 0.083% NEBU SOLN 3 ML VIAL NEB PRN (08:40)
[2021-02-04] MEDS: buPROPion XL 150 MG TABCR PO SCH (08:40)
[2021-02-04] MEDS ORDERED: FUROSEMIDE 20 MG in SYRINGE 0 ML IV ONE (08:45)
[2021-02-04] MEDS: guaiFENesin 600 MG TABCR PO SCH ×2 (11:07→20:36)
--- NOTE | 2021-02-04 16:13 | Hospitalist Progress Note ---
Date of Service February 04, 2021 Assessment & Plan (1) Pneumonia due to COVID-19 virus: (2) Acute respiratory failure with hypoxia: COVID-19 pneumonia Acute respiratory failure with hypoxia -CTA:There is no evidence of pulmonary embolus in the main, lobar, or segmental pulmonary arteries. Multifocal airspace consolidation is consistent with the reported history of a viral pneumonia. Radiographic follow-up to resolution is recommended. Small pleural effusions. Mildly enlarged mediastinal and hilar nodes are likely reactive. Cholelithiasis. -Normal procalcitonin -Continue remdesivir, dexamethasone as per protocol -Continue Lasix as needed -Continue supplemental oxygen -We will repeat chest x-ray in the morning -Consider pulmonary evaluation if continues to deteriorate -Encourage to Prone -Nebs PRN Mood Disorder Continue bupropion (3) DVT prophylaxis: SQ Lovenox Admission and Anticipated Discharge Date Admission Date: February 02, 2021 Subjective Patient is seen and examined at bedside Less Dyspnea Still has cough Denies chest pain, nausea, vomiting, diarrhea, abdominal pain, dizziness States having poor appetite Discussed with patient's daughter over phone Offers no other complaints Review of Systems Review of Systems: All systems reviewed & are unremarkable except as noted in HPI & below Physical Exam Physical Exam: Physical Exam: Vitals signs as noted above General Appearance:Moderately built and nourished, no apparent distress Head: normocephalic, Atraumatic Eyes: normal inspection, EOMI Neck: supple, Trachea midline Respiratory/Chest: Decreased breath sounds, CTA, No accessory muscle use Cardiovascular: S1, S2, No murmur Abdomen/GI:Soft, Non tender, Bowel sounds present Extremities/Musculoskelatal:normal inspection, no edema Neurologic/Psych:AAOX3, grossly no focal neurological deficits Skin: normal color, warm Results & Data Results & Data ([facility]) Vital Signs (Past 12 Hours) Vital Signs Temp Pulse Pulse Resp BP BP Pulse Ox 02/04/21 15:17 36.5 C 89 20 133/62 91 02/04/21 13:02 36.5 C 88 18 148/78 H 89 L 02/04/21 10:08 36.4 C L 75 18 164/88 H 92 02/04/21 08:00 73 02/04/21 05:01 36.4 C L 77 17 152/64 H 92 Laboratory Results Short CBC 02/04/21 Range/Units 06:41 WBC 9.69 (4.8-10.8) K/uL Hgb 12.9 (12.0-16.0) g/dL Hct 39.3 (37-47) % Plt Count 418 H (130-400) K/uL BMP 02/04/21 06:41 Sodium 140 Potassium 3.5 Chloride 109 H Carbon Dioxide 24 BUN 18 Creatinine 0.63 Glucose 97 Calcium 9.0 Liver Function 02/04/21 Range/Units 06:41 Total Bilirubin 0.4 (0.2-1) mg/dl AST 20 (15-37) U/L ALT 29 (12-78) U/L Alkaline Phosphatase 42 L (45-117) U/L Albumin 2.8 L (3.4-5.0) gm/dl Urine 02/03/21 Range/Units Unknown Urine Color Yellow Urine Appearance Clear (Clear) Urine pH 6.5 (4.5-7.5) Ur Specific Worden 1.010 (1.000-1.030) Urine Protein Negative (Negative) Urine Glucose (UA) Negative (Negative)
[2021-02-04] MEDS: REMDESIVIR 100 MG in SODIUM CHLORIDE 0.9% 230 ML IV SCH (20:36)
[2021-02-04] MEDS: ENOXAPARIN INJ 40 MG/0.4 ML SYR SQ SCH (20:37)
[2021-02-04] MEDS: SODIUM CHLORIDE 0.9% 10ML FLUSH IV SCH (21:46)
[2021-02-05 08:38] LABS: BUN Creatinine Ratio 27.6 (10-20); Creatinine Clr Calc Pharmacy 112.6 ml/min; Est GFR (African American) 124.3; Est GFR (Non-African American) 107.2; Potassium 3.4 mmol/L (3.5-5.1)
[2021-02-05] MEDS ORDERED: POTASSIUM CHLORIDE CRTAB 20 MEQ TABCR PO ONE (09:15)
[2021-02-05] MEDS: dexAMETHasone 6 MG in SYRINGE 0 ML IV SCH (09:27)
[2021-02-05] MEDS: guaiFENesin 600 MG TABCR PO SCH ×2 (09:27→20:17)
[2021-02-05] MEDS: buPROPion XL 150 MG TABCR PO SCH (09:27)
--- NOTE | 2021-02-05 09:40 | XRay Report ---
SINGLE VIEW CHEST CLINICAL HISTORY: Covid pneumonia. FINDINGS: An AP, portable, upright chest radiograph is compared to chest x-ray and chest CT dated 02/02. The cardiomediastinal silhouette is unremarkable. Multifocal airspace consolidation is again s een throughout both lungs. This is unchanged to modestly cleared as compared to 02/02/2021. No large pl eural effusion or pneumothorax is seen. The bony thorax is grossly intact. IMPRESSION: Multifocal airspace consolidation is unchanged to modestly cleared as compared to . ACT 112: Negative or not required by law. Electronically signed by: Boris Han M.D. 02/05/2021 9:39 AM
--- NOTE | 2021-02-05 14:27 | Hospitalist Progress Note ---
Date of Service February 05, 2021 Assessment & Plan (1) Pneumonia due to COVID-19 virus: (2) Acute respiratory failure with hypoxia: COVID-19 pneumonia Acute respiratory failure with hypoxia -CTA:There is no evidence of pulmonary embolus in the main, lobar, or segmental pulmonary arteries. Multifocal airspace consolidation is consistent with the reported history of a viral pneumonia. Radiographic follow-up to resolution is recommended. Small pleural effusions. Mildly enlarged mediastinal and hilar nodes are likely reactive. Cholelithiasis. -Normal procalcitonin -Continue remdesivir, dexamethasone as per protocol -Continue Lasix as needed -Consider pulmonary evaluation if continues to deteriorate -Encourage to Prone -Nebs PRN CXR today shows unchanged to modestly clear multifocal airspace consolidation Continue high flow oxygen Titrate oxygen to keep sats > 92 Mood Disorder Continue bupropion (3) DVT prophylaxis: SQ Lovenox Admission and Anticipated Discharge Date Admission Date: February 02, 2021 Subjective Patient is seen and examined at bedside Subjectively feels better today Less dyspnea, cough today Appetite slowly improving Denies chest pain, nausea, vomiting, diarrhea, abdominal pain, dizziness Remains on high flow oxygen Review of Systems Review of Systems: All systems reviewed & are unremarkable except as noted in HPI & below Physical Exam Physical Exam: Physical Exam: Vitals signs as noted above General Appearance:Moderately built and nourished, no apparent distress Head: normocephalic, Atraumatic Eyes: normal inspection, EOMI Neck: supple, Trachea midline Respiratory/Chest: Decreased breath sounds, CTA, No accessory muscle use Cardiovascular: S1, S2, No murmur Abdomen/GI:Soft, Non tender, Bowel sounds present Extremities/Musculoskelatal:normal inspection, no edema Neurologic/Psych:AAOX3, grossly no focal neurological deficits Skin: normal color, warm Results & Data Results & Data ([place]) Vital Signs (Past 12 Hours) Vital Signs Temp Pulse Resp BP Pulse Ox 02/05/21 11:16 36.2 C L 82 18 127/81 92 02/05/21 07:46 36.2 C L 69 18 121/70 92 02/05/21 04:00 65 97 Laboratory Results BMP 02/05/21 07:36 Sodium 139 Potassium 3.4 L Chloride 108 H Carbon Dioxide 26 BUN 18 Creatinine 0.65 Glucose 83 Calcium 9.0 Liver Function 04/08/21 Range/Units 07:36 AST 43 H (15-37) U/L ALT 74 (12-78) U/L
[2021-02-05] MEDS: ENOXAPARIN INJ 40 MG/0.4 ML SYR SQ SCH (20:18)
[2021-02-05] MEDS: REMDESIVIR 100 MG in SODIUM CHLORIDE 0.9% 230 ML IV SCH (20:18)
[2021-02-05] MEDS: SODIUM CHLORIDE 0.9% 10ML FLUSH IV SCH (20:19)
[2021-02-06 07:50] LABS: BUN Creatinine Ratio 23.8 (10-20); Calcium 8.6 mg/dl (8.5-10.1); Creatinine Clr Calc Pharmacy 110.7 ml/min; Est GFR (African American) 122.4; Est GFR (Non-African American) 105.6; Magnesium 2.3 mg/dl (1.8-2.4); Potassium 3.9 mmol/L (3.5-5.1)
[2021-02-06] MEDS: buPROPion XL 150 MG TABCR PO SCH (09:25)
[2021-02-06] MEDS: guaiFENesin 600 MG TABCR PO SCH ×2 (09:25→20:08)
[2021-02-06] MEDS: dexAMETHasone 6 MG in SYRINGE 0 ML IV SCH (09:25)
--- NOTE | 2021-02-06 17:38 | Hospitalist Progress Note ---
Date of Service February 06, 2021 Assessment & Plan (1) Pneumonia due to COVID-19 virus: (2) Acute respiratory failure with hypoxia: COVID-19 pneumonia Acute respiratory failure with hypoxia -CTA:There is no evidence of pulmonary embolus in the main, lobar, or segmental pulmonary arteries. Multifocal airspace consolidation is consistent with the reported history of a viral pneumonia. Radiographic follow-up to resolution is recommended. Small pleural effusions. Mildly enlarged mediastinal and hilar nodes are likely reactive. Cholelithiasis. Normal procalcitonin Continue remdesivir, dexamethasone as per protocol Continue Lasix as needed Consider pulmonary evaluation if continues to deteriorate Encourage to Prone Nebs PRN Titrate oxygen to keep sats > 90 Saturating well on 2 L of supplemental oxygen Likely needs 2 step prior to discharge Mood Disorder Continue bupropion (3) DVT prophylaxis: SQ Lovenox Admission and Anticipated Discharge Date Admission Date: February 02, 2021 Subjective Patient is seen and examined at bedside No new complaints Saturating well on minimal supplemental oxygen Less cough today Denies chest pain, dyspnea, nausea, vomiting, diarrhea, abdominal pain, dizziness Review of Systems Review of Systems: All systems reviewed & are unremarkable except as noted in HPI & below Physical Exam Physical Exam: Physical Exam: Vitals signs as noted above General Appearance:Moderately built and nourished, no apparent distress Head: normocephalic, Atraumatic Eyes: normal inspection, EOMI Neck: supple, Trachea midline Respiratory/Chest: Decreased breath sounds, CTA, No accessory muscle use Cardiovascular: S1, S2, No murmur Abdomen/GI:Soft, Non tender, Bowel sounds present Extremities/Musculoskelatal:normal inspection, no edema Neurologic/Psych:AAOX3, grossly no focal neurological deficits Skin: normal color, warm Results & Data Results & Data ([facility]) Vital Signs (Past 12 Hours) Vital Signs Temp Pulse Resp BP BP Pulse Ox Pulse Ox 02/06/21 16:00 96 02/06/21 15:00 36.5 C 88 20 121/78 95 02/06/21 12:00 36.5 C 86 18 130/76 94 02/06/21 09:26 36.6 C 86 18 118/80 91 02/06/21 06:16 96 Laboratory Results BMP 02/06/21 06:26 Sodium 141 Potassium 3.9 Chloride 111 H Carbon Dioxide 25 BUN 16 Creatinine 0.68 Glucose 89 Calcium 8.6 Liver Function 02/06/21 Range/Units 06:26 AST 59 H (15-37) U/L ALT 116 H (12-78) U/L
[2021-02-06] MEDS: SODIUM CHLORIDE 0.9% 10ML FLUSH IV SCH (20:02)
[2021-02-06] MEDS: REMDESIVIR 100 MG in SODIUM CHLORIDE 0.9% 230 ML IV SCH (20:02)
[2021-02-06] MEDS: ENOXAPARIN INJ 40 MG/0.4 ML SYR SQ SCH (20:08)
[2021-02-07 07:23] LABS: BUN Creatinine Ratio 21.5 (10-20); Calcium 9.3 mg/dl (8.5-10.1); Creatinine Clr Calc Pharmacy 122.8 ml/min; Est GFR (African American) 124.9; Est GFR (Non-African American) 107.8; Potassium 3.9 mmol/L (3.5-5.1)
[2021-02-07] MEDS: guaiFENesin 600 MG TABCR PO SCH (07:47)
[2021-02-07] MEDS: buPROPion XL 150 MG TABCR PO SCH (07:47)
[2021-02-07] MEDS: dexAMETHasone 6 MG in SYRINGE 0 ML IV SCH (07:47)
--- NOTE | 2021-02-07 14:24 | XRay Report ---
XR chest 1V portable HISTORY: Covid positive. Shortness of breath. COMPARISON: Chest 02/05/2021. FINDINGS: No pneumothorax. No pleural effusions. The heart remains normal in size. No evidence for pu lmonary edema. Faint scattered multifocal airspace opacities are not significant changed. IMPRESSION: No change in the faint multifocal airspace opacities consistent with a viral pneumonia. ACT 112: Negative or not required by law. Electronically signed by: Ranjith Jruado M.D. 02/07/2021 2:22 PM
--- NOTE | 2021-02-07 14:49 | Hospitalist Progress Note ---
Date of Service February 07, 2021 Assessment & Plan (1) Pneumonia due to COVID-19 virus: (2) Acute respiratory failure with hypoxia: COVID-19 pneumonia Acute respiratory failure with hypoxia -CTA:There is no evidence of pulmonary embolus in the main, lobar, or segmental pulmonary arteries. Multifocal airspace consolidation is consistent with the reported history of a viral pneumonia. Radiographic follow-up to resolution is recommended. Small pleural effusions. Mildly enlarged mediastinal and hilar nodes are likely reactive. Cholelithiasis. Normal procalcitonin Completed Remdesivir course Continue dexamethasone Day #6 Continue Lasix as needed Consider pulmonary evaluation if continues to deteriorate Encourage to Prone Nebs PRN Titrate oxygen to keep sats > 90 2 Step: Requires 3 liters with activity Mood Disorder Continue bupropion (3) DVT prophylaxis: SQ Lovenox Admission and Anticipated Discharge Date Admission Date: February 02, 2021 Subjective Patient is seen and examined at bedside Reports only minimal Dyspnea on exertion 2 Step: requires 3 liters with Activity Has minimal cough Denies chest pain, nausea, vomiting, diarrhea, abdominal pain, dizziness Review of Systems Review of Systems: All systems reviewed & are unremarkable except as noted in HPI & below Physical Exam Physical Exam: Physical Exam: Vitals signs as noted above General Appearance:Moderately built and nourished, no apparent distress Head: normocephalic, Atraumatic Eyes: normal inspection, EOMI Neck: supple, Trachea midline Respiratory/Chest: Decreased breath sounds, CTA, No accessory muscle use Cardiovascular: S1, S2, No murmur Abdomen/GI:Soft, Non tender, Bowel sounds present Extremities/Musculoskelatal:normal inspection, no edema Neurologic/Psych:AAOX3, grossly no focal neurological deficits Skin: normal color, warm Results & Data Results & Data ([facility]) Vital Signs (Past 12 Hours) Vital Signs Temp Pulse Pulse Pulse Pulse Pulse Pulse 02/07/21 12:52 36.7 C 111 H 02/07/21 11:41 114 H 113 H 120 H 98 H 02/07/21 08:00 68 02/07/21 07:34 36.7 C 68 02/07/21 02:54 37.0 C 65 Pulse Resp Resp Resp Resp Resp Resp 02/07/21 12:52 20 02/07/21 11:41 101 H 18 18 18 18 18 02/07/21 08:00 02/07/21 07:34 19 02/07/21 02:54 18 BP BP Pulse Ox Pulse Ox Pulse Ox Pulse Ox Pulse Ox 02/07/21 12:52 150/84 H 91 02/07/21 11:41 88 L 89 L 86 L 90 02/07/21 08:00 02/07/21 07:34 144/77 H 95 02/07/21 02:54 125/78 95 Pulse Ox 02/07/21 12:52 02/07/21 11:41 90 02/07/21 08:00 02/07/21 07:34 02/07/21 02:54 Laboratory Results [facility] 02/07/21 06:08 Sodium 138 Potassium 3.9 Chloride 108 H Carbon Dioxide 24 BUN 14 Creatinine 0.64 Glucose 86 Calcium 9.3 Liver Function 02/07/21 Range/Units 06:08 AST 61 H (15-37) U/L ALT 144 H (12-78) U/L
--- NOTE | 2021-02-07 16:01 | Discharge Summary ---
Date of Service February 07, 2021 Admission HPI Per Admitting Provider 45-year-old female with PMH depression and other problems listed below who presents to the ED for evaluation of ongoing shortness of breath and positive COVID-19 test on 01/22. Patient reports she has been sick for the past 10 days. Reports symptoms have been progressively getting worse. She reports shortness of breath with minimal exertion and conversation. She has had a nonproductive cough. Has been having ongoing low-grade fevers. Reports a very poor appetite. Reports sense of taste and smell remains intact however food does not taste normal. Denies abdominal pain, nausea, vomiting, diarrhea. No chest pain or palpitations. Denies lightheadedness and dizziness. No urinary symptoms. In the ED, patient was found to be hypoxic on room air at 88%. Currently requiring 2 L of oxygen via NC to maintain saturation. CTA chest is negative for pulmonary embolism however shows multifocal airspace consolidation. Patient was given Tylenol, IV dexamethasone, IV ketorolac, IVF. Admission Exam Per Admitting Provider Physical Exam Constitutional: WD/WN, vitals as above + ill appearing; no acute distress Eyes: PERRL, conjunctivae normal, anicteric sclerae ENMT: external ear and nose normal, oropharynx normal Respiratory: normal respiratory effort; no respiratory distress Auscultation: + diminished lung sounds Shortness of breath with minimal exertion Cardiovascular: Rate/Rhythm: regular rate and regular rhythm Vessels: normal peripheral pulses Extremities: no edema Gastrointestinal (Abdomen): normal bowel sounds, soft, nontender, no hepatosplenomegaly Musculoskeletal: no cyanosis or clubbing, extremities motor strength 5/5 Skin: no rashes, warm and dry Neurologic: PERRL, EOMI, accommodation nl, no face palsy, no dysarthria Psychiatric: A+Ox3, euthymic affect Principal Diagnosis COVID-19 pneumonia Acute respiratory failure with hypoxia Discharge Data Allergies Allergy/AdvReac Type Severity Reaction Status Date / Time amoxicillin Allergy Unconscious Unverified 02/02/21 14:35 Penicillins Allergy Unknown Unverified 02/02/21 14:35 Consultations 02/02/21 13:55 ED Decision to Admit Stat Procedures Performed CTA: CTA:There is no evidence of pulmonary embolus in the main, lobar, or segmental pulmonary arteries. Multifocal airspace consolidation is consistent with the reported history of a viral pneumonia. Radiographic follow-up to resolution is recommended. Small pleural effusions. Mildly enlarged mediastinal and hilar nodes are likely reactive. Cholelithiasis. Ordered Studies 02/02/21 13:35 CT angio chest PE protocol Stat Hospital Course (1) Pneumonia due to COVID-19 virus: (2) Acute respiratory failure with hypoxia: COVID-19 pneumonia Acute respiratory failure with hypoxia -CTA:There is no evidence of pulmonary embolus in the main, lobar, or segmental pulmonary arteries. Multifocal airspace consolidation is consistent with the reported history of a viral pneumonia. Radiographic follow-up to resolution is recommended. Small pleural effusions. Mildly enlarged mediastinal and hilar nodes are likely reactive. Cholelithiasis. Normal procalcitonin Completed Remdesivir course Continue dexamethasone Day #6 Continue Lasix as needed Consider pulmonary evaluation if continues to deteriorate Encourage to Prone Nebs PRN Titrate oxygen to keep sats > 90 2 Step: Requires 3 liters with activity Mood Disorder Continue bupropion (3) DVT prophylaxis: SQ Lovenox Total Time Total Time Spent Total Time Spent (In Minutes): 40 minutes Total Time Includes: Examination of the Patient, Discharge Planning, Medication Reconciliation, Communication With Other Providers and Other Discharge Plan Discharge Items Patient Disposition: Home - Self-Care Reason For Visit: COVID Discharge Diagnosis: COVID-19 pneumonia Acute respiratory failure with hypoxia Activity: Per Instructions section Exercise/Sports: Wait until after follow-up appointment Non-emergency contact: Primary Care Provider Call non-emergency contact if: you have any medication questions, your symptoms worsen, your pain is not controlled, your pain is worsening, your pain is unusual for you, your pain is concerning for you and you have a fever Follow-up/Referrals: Doc Taylor MD [Primary Care Provider] - Diet: Regular Addtl Attending Provider Instructions: Follow-up with your primary care physician Dr. Taylor in 1 week as advised Complete the prednisone course as prescribed Use oxygen 3 liters via nasal cannula with activity. Seek immediate medical attention if your symptoms reoccur or worsen Home Isolation COVID-19 Instructions The following information about Home Isolation is from the CDC Website: https://www.cdc.gov/coronavirus/2019-ncov/hcp/kswtjtzu-kahcqvw-spijhe.html Stay home except to get medical care People who are mildly ill with COVID-19 are able to isolate at home during their illness. You should restrict activities outside your home, except for getting medical care. Do not go to work, school, or public areas. Avoid using public transportation, ride-sharing, or taxis. Separate yourself from other people and animals in your home People: As much as possible, you should stay in a specific room and away from other people in your home. Also, you should use a separate bathroom, if available. Animals: You should restrict contact with pets and other animals while you are sick with COVID-19, just like you would around other people. Although there have not been reports of pets or other animals becoming sick with COVID-19, it is still recommended that people sick with COVID-19 limit contact with animals until more information is known about the virus. When possible, have another member of your household care for your animals while you are sick. If you are sick with COVID-19, avoid contact with your pet, including petting, snuggling, being kissed or licked, and sharing food. If you must care for your pet or be around animals while you are sick, wash your hands before and after you interact with pets and wear a face mask. Call ahead before visiting your doctor If you have a medical appointment, call the healthcare provider and tell them that you have or may have COVID-19. This will help the healthcare providers office take steps to keep other people from getting infected or exposed. Wear a face mask You should wear a face mask when you are around other people (e.g., sharing a room or vehicle) or pets and before you enter a healthcare providers office. If you are not able to wear a face mask (for example, because it causes trouble breathing), then people who live with you should not stay in the same room with you, or they should wear a face mask if they enter your room. Cover your coughs and sneezes Cover your mouth and nose with a tissue when you cough or sneeze. Throw used tissues in a lined trash can. Immediately wash your hands with soap and water for at least 20 seconds or, if soap and water are not available, clean your hands with an alcohol-based hand field scout that contains at least 60% alcohol. Clean your hands often Wash your hands often with soap and water for at least 20 seconds, especially after blowing your nose, coughing, or sneezing; going to the bathroom; and before eating or preparing food. If soap and water are not readily available, use an alcohol-based hand field scout with at least 60% alcohol, covering all surfaces of your hands and rubbing them together until they feel dry. Soap and water are the best option if hands are visibly dirty. Avoid touching your eyes, nose, and mouth with unwashed hands. Avoid sharing personal household items You should not share dishes, drinking glasses, cups, eating utensils, towels, or bedding with other people or pets in your home. After using these items, they should be washed thoroughly with soap and water. Clean all high-touch surfaces everyday High touch surfaces include counters, tabletops, doorknobs, bathroom fixtures, toilets, phones, keyboards, tablets, and bedside tables. Also, clean any surfaces that may have blood, stool, or body fluids on them. Use a household cleaning spray or wipe, according to the label instructions. Labels contain instructions for safe and effective use of the cleaning product including precautions you should take when applying the product, such as wearing gloves and making sure you have good ventilation during use of the product. Monitor your symptoms Seek prompt medical attention if your illness is worsening (e.g., difficulty breathing).Beforeseeking care, call your healthcare provider and tell them that you have, or are being evaluated for, COVID-19. Put on a face mask before you enter the facility. These steps will help the healthcare providers office to keep other people in the office or waiting room from getting infected or exposed. Ask your healthcare provider to call the local or [facility] health department. Persons who are placed under active monitoring or facilitated self- monitoring should follow instructions provided by their local health department or occupational health professionals, as appropriate. When working with your local health department check their available hours. If you have a medical emergency and need to call 911, notify the dispatch [facility] that you have, or are being evaluated for COVID-19. If possible, put on a face mask before emergency medical services arrive. Discontinuing home isolation Patients with confirmed COVID-19 should remain under home isolation precautions until the risk of secondary transmission to others is thought to be low. The decision to discontinue home isolation precautions should be made on a [id number] basis, in consultation with healthcare providers and state and local health departments. Coronavirus disease 2019 (COVID-19) is a virus that causes a respiratory illness. It is caused by a coronavirus called 2019 novel coronavirus (2019- nCoV). There are many types of coronavirus. Coronaviruses are a very common cause of bronchitis. They may sometimes cause lung infection(pneumonia). Symptoms can range from mild to severe respiratory illness. These viruses are also foundin some animals. COVID-19 was first found in people in [facility], in late 2019. In 2020, several cases of COVID-19 have been confirmed in the [place] Public health officials are working to find the source. How the virus spreads is not yet fully known. It may be spread through droplets of fluid that a person coughs or sneezes into the air. It may be spread if you touch a surface with virus on it, such as a handle or object, and then touch your mouth. What are the symptoms of COVID-19? Some people have no symptoms or mild symptoms. Symptoms may appear 2 to 14 days after contact with the virus. Symptoms can include: Fever Coughing Trouble breathing What are possible complications from COVID-19? In many cases, this virus can cause infection (pneumonia) in both lungs. In some cases, this can cause . How is COVID-19 diagnosed? Your healthcare provider will ask about your symptoms. He or she will also ask about your recent travel and contact with sick people. Testing for the virus is only done through the CDC. If yourhealthcare provider thinks you may have COVID- 19, he or she will work with your local health department and the CDC on testing. Follow all instructions from your healthcare provider. COVID-19 is diagnosed by: Nasal and throat swab. A cotton-tipped swab is wiped inside your nose or throat. This is done to check for viruses in your nasal mucus. Sputum culture. A small sample of mucus coughed from your lungs (sputum) is collected if you have a cough. It is checked for the virus. How is COVID-19 treated? There is currently no medicine to treat the virus. Treatment is done to help your body while it fights the virus. This is known as supportive care. Supportive care may include: Pain medicine. These include acetaminophen and ibuprofen. They are used to help ease pain and reduce fever. Bed rest. This helps your body fight the illness. For severe illness, you may need to stay in the hospital. Care during severe illness may include: IV (intravenous) fluids.These are given through a vein to help keep your body hydrated. Oxygen. Supplemental oxygen or ventilation with a breathing machine (ventilator) may be given. This is done to keep enough oxygen in your body. Are you at risk for COVID-19? If youve been to a place where people have been sick with this virus, you are at risk for infection. You are at risk if you: Recently traveled to an affected area Had contact with a sick person who recently traveled to this area Had contact with a person who was diagnosed with COVID-19 How can COVID-19 be prevented? There is no vaccine yet. The best prevention is to not have contact with the virus. The CDC advises that people should not travel to areas where there are COVID-19 outbreaks right now for any reason that is not urgent. To help prevent spreading the infection, wash your hands often, or use an alcohol-basedhand field scout. If you are in an area with COVID-19: Wash your hands often. Or use an alcohol-based hand field scout often. Only touch your eyes, nose, or mouth with clean hands. Dont have contact with people who are sick. Follow local instructions about being in public. For example, you may be told to not use public transport for a period of time. Stay away from markets that have live or animals. Wash your hands after touching any animals. Don't touch animals that may be sick. Dont share eating or drinking tools with sick people. Dont kiss someone who is sick. Clean surfaces often with disinfectant. If you were in an area with COVID-19 in the last 14 days: Call your healthcare provider. He or she can talk with local health staff to see what action may be needed. Follow all instructions from your provider. Take your temperature every morning and evening for at least 14 days. This is to check for fever. Keep a record of the readings. Keep watch for symptoms of the virus. Tell your provider right away if you have symptoms. If you were in an area with COVID-19 and have a fever or other symptoms: Dont panic. Keep in mind that other illnesses can cause similar symptoms. Stay away from work, school, and public places. Limit physical contact with family members. Don't kiss anyone or share eating or drinking utensils. Clean surfaces you touch with disinfectant. This is to help prevent the virus from spreading. Call your healthcare provider. Explain that you have been exposed to COVID-19 and have symptoms. Do this before going to any hospital. Wait for instructions. Keep in mind that healthcare staff may wear protective equipment such as masks, gowns, gloves, and eye protection. You may be put in a separate room. This is to prevent the possible virus from spreading. Tell the healthcare staff about recent travel. This includes local travel on public transport. Staff may need to find other people you have been in contact with. Follow all instructions the healthcare staff give you. If you have been diagnosed with COVID-19 Follow all instructions from your healthcare provider. Dont leave your home, except to get medical care. Call your healthcare providers office before going. They can prepare and give you instructions. This will help prevent the virus from spreading. Dont go to work, school, or public areas. Dont use public transport or taxis. Stay away from other people in your home. Have them wear face masks around you. Dont share household items or food. Wear a face mask if you can. This includes at home or in a medical facility. Cover your face with a tissue when you cough or sneeze. Throw the tissue away. Wash your hands. Wash your hands often. Caregivers should: Follow all instructions from healthcare staff. Wear a face mask and protective clothing as advised. Wash hands often. Keep track of the sick persons symptoms. Clean surfaces, fabrics, and laundry thoroughly. Keep other people away from the sick person. When to call your healthcare provider Call your healthcare provider: If youve recently traveled and have symptoms If you have been diagnosed with COVID-19 and your symptoms are worse To learn more To find out more about COVID-19, visit the CDC website at www.cdc.gov/coronavirus/2019-ncov/index.html. [employer]. [address] [place] [address], [place] [address]. All rights reserved. This information is not intended as a substitute for professional medical care. Always follow your healthcare professional's instructions. This information has been adapted from [employer] Pending Studies at Discharge: No Stand-Alone Forms: My [facility], Work/School Release (Inpt), Smoking Cessation Medications and DC Order Prescriptions: New Robitussin Cough-Chest Atul DM 5-100 mg/5 mL Liquid 10 ml PO Q6H PRNQty: 0 RF: 0 guaifenesin [Mucinex] 600 mg Tablet Extended Release 12hr 600 mg PO Q12 Qty: 10 RF: 0 prednisone 10 mg tablet 10 mg PO UD Qty: 10 RF: 0 famotidine [Pepcid] 20 mg tablet 20 mg PO DAILY Qty: 7 RF: 0 Continued bupropion HCl 150 mg tablet extended release 24 hr 450 mg PO DAILY RF: 0 Discharge Orders: Discharge Order (Routine); Ordered 02/07/21 Ordered By: Colten Lemus Admission Data Admit Date/Time: 02/02/21 14:01 Attending Provider: Colten Lemus Admit Provider: Evelyn Salguero Primary Care Provider: Doc Taylor Other Providers: Evelyn Salguero Other Interventions: Discharge Summary Assessment (RN) Last Done: 02/07/21 15:02
== END 2021-02-07 15:40 | disposition home or self-care (01) | DRG 177 ==
LOC: ED 11:49 → SUATTDRO 14:01 → 2S 14:01